=== PATIENT | male | born 1960 | race Caucasian/White ===

== ENCOUNTER 2020-04-30 17:42 | Emergency (ER) | payer MEDICARE, MEDICAID, SELFPAY ==
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
--- NOTE | 2020-04-30 18:05 | PC.NURSE ---
PT CONTINUES TO REFUSE TO ALLOW US TO TOUCH HIM OR FOR ANY TESTING BE DONE
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
[2020-04-30] MEDS: HALOPERIDOL LACTATE 5 MG/ML VIAL IM (19:12)
[2020-04-30] MEDS: diphenhydrAMINE HCl INJ 50 MG/ML VIAL IM (19:13)
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
[2020-04-30 21:13] LABS: Basophils Percent Auto 0.3 % (0.2-1.2); Eosinophils Percent Auto 0.1 % (0-4.4); Hematocrit 45.4 % (42.0-52.0); Hemoglobin 15.3 g/dL (14.0-18.0); Immature Granulocyte Absolute 0.05 K/mm3 (0.00-0.031); Immature Granulocyte Percent A 0.5 % (0-0.5); Lymphocytes Absolute Auto 1.67 K/mm3 (0.9-3.2); Lymphocytes Percent Auto 15.6 % (18.3-44.2); Mean Corpuscular HGB Conc 33.7 g/dl (32-36); Mean Corpuscular Hemoglobin 33.5 pg (26-34); Mean Corpuscular Volume 99.3 fl (80-100); Mean Platelet Volume 9.8 fl (7.4-10.4); Monocytes Absolute Auto 0.7 K/mm3 (0.1-0.6); Monocytes Percent Auto 6.8 % (2.6-8.5); Neutrophils Absolute Auto 8.2 K/mm3 (1.3-6.7); Neutrophils Percent Auto 76.7 % (45.5-73.1); Platelet Count Result 202 k/mm3 (150-375); Red Blood Count 4.57 M/mm3 (4.6-6.20); Red Cell Distribution Width 13.5 % (11.5-14.5); White Blood Count 10.7 K/mm3 (4.5-10.0)
[2020-04-30 21:20] LABS: Add Urine Microscopic? YES; Appearance Urine Clear (Clear); Bacteria Urine Trace /hpf; Bilirubin Urine Negative (Negative); Blood Urine Negative (Negative); Color Urine Yellow (Yellow); Glucose Urine UA Negative (Negative); Ketones Urine Negative (Negative); Leukocyte Esterase Ur Negative LEU/UL (Negative); Mucus Urine Rare /lpf; Nitrate Urine Negative (Negative); Protein Urine Negative (Negative); RBC Urine 0-2 /hpf (0-2); Specific Grav Ur 1.018 (1.001-1.035); Urobilinogen Urine Negative mg/dL (<2.0); WBC Urine 0-3 /hpf
--- NOTE | 2020-04-30 21:20 | PC.NURSE ---
Blood drawn and straight cath per MD request. Pt was held by 3 nurses and MD Sharif in order to safely perform the task.
[2020-04-30 21:26] LABS: Acetaminophen < 10 ug/mL (10-30); Ethanol < 10 mg/dL (<10); Salicylate < 1.0 mg/dL (2-20)
[2020-04-30 21:27] LABS: Alanine Aminotransferase 16 U/L (4-50); Albumin Level 4.2 g/dL (3.5-5.1); Alkaline Phosphatase 74 U/L (38-126); Aspartate Amino Transferase 22 U/L (17-59); Bilirubin,Total 0.5 mg/dL (0.2-1.3); Blood Urea Nitrogen 23 mg/dL (9-20); Calcium 9.7 mg/dL (8.4-10.2); Carbon Dioxide 25 mmol/L (22-30); Chloride 109 mmol/L (98-107); Estimated Glomerular Filt Rate > 60; Glucose 111 mg/dL (75-110); Potassium 4.8 mmol/L (3.4-5.0); Sodium 141 mmol/L (137-145)
[2020-04-30 21:31] LABS: Amphetamine Screen Urine Negative (Negative); Barbiturate Screen Urine Negative (Negative); Benzodiazepines Screen Urine Negative (Negative); Cannabinoid Screen Urine Negative (Negative); Cocaine Screen Urine Negative (Negative); Methadone Screen Urine Negative (Negative); Opiate Screen Urine Negative (Negative); Phencyclidine Screen Urine Negative (Negative)
--- NOTE | 2020-04-30 22:08 | PC.NURSE ---
MD Sharif states a EKG is not needed.
[2020-05-01] VITALS (7 sets, daily range): BP systolic 118–157; BP diastolic 72–103; PULSE 92–128; RESP 17–21; O2SAT 96–100
--- NOTE | 2020-05-01 02:53 | PC.NURSE ---
[id number] this nurse received a call from [facility] stating they will not be having a bed available tonight for the Pt, and they don't know exactly when one will become available.
--- NOTE | 2020-05-01 05:14 | PC.NURSE ---
[facility] called to state DR Batres was not going to accept the patient.
--- NOTE | 2020-05-01 07:16 | PC.NURSE ---
Assumed care of pt, pt is alert on stretcher, refusing ordered EKG. Pt on gambling monitor, VSS. Pt wearing clothing. Denies SI/HI at this time. Sitter at bedside. Lights dimmed. Marcus Bryant RN pt ate breakfast tray.
[2020-05-01] MEDS: diphenhydrAMINE HCl INJ 50 MG/ML VIAL 25 MG IM (07:44)
[2020-05-01] MEDS: HALOPERIDOL LACTATE 5 MG/ML VIAL IM (07:44)
--- NOTE | 2020-05-01 07:44 | PC.NURSE ---
Pt calm and cooperative with IM medications ordered. Pt angry, states You guys are druggies, pushing meds on people that do not need it. You are not authorized to give me injections. Pt rolled sleeves up bilat arms and compliant. Sitter remains at bedside.
--- NOTE | 2020-05-01 07:46 | PC.NURSE ---
Pt offered a shower at this time, declined, states I will let you know when I want to.
--- NOTE | 2020-05-01 08:46 | PC.NURSE ---
Pt is resting on stretcher, lights dimmed, sitter at bedside. Courtney from [facility] called for update. States she will continue to find placement, that she is unaware of any discharges for hospitals at this time, states It is a little early for discharges yet, but I will continue to look. Courtney aware pt is refusing/declining the EDP ordered EKG.
--- NOTE | 2020-05-01 10:39 | PC.NURSE ---
Per Courtney from Crisis request, FACE SHEET on pt faced to [facility] [phone] at this time by this RN.
--- NOTE | 2020-05-01 11:50 | PC.NURSE ---
Report given to Nicole ESTRADA at this time.Pt resting on stretcher, lights dimmed, sitter at bedside. Equal chest rise and fall, pt alert to verbal stimuli.
--- NOTE | 2020-05-01 12:30 | PC.NURSE ---
pt resting on stretcher, sitter at bedside. No current needs.
--- NOTE | 2020-05-01 13:10 | PC.NURSE ---
pt provided lunch tray at this time. Chicken strips, fries, drink.
--- NOTE | 2020-05-01 13:15 | PC.NURSE ---
Helen from [facility] - Please contact [facility] for possible intake questions. [phone].
--- NOTE | 2020-05-01 13:25 | PC.NURSE ---
RN spoke with Celina at [facility]. [facility] will fax us a face sheet with a list of required documents to fax back to them. RN awaiting fax.
--- NOTE | 2020-05-01 13:58 | PC.NURSE ---
RN faxed to [facility] required paper work at this time. RN also made a copy and placed in chart.
--- NOTE | 2020-05-01 14:10 | PC.NURSE ---
pt resting on stretcher. no current needs.
--- NOTE | 2020-05-01 15:28 | PC.NURSE ---
Amberly at [facility] requested re-faxing of chart, face sheet, petition/cert, labs and returning of the 2 questionaires they faxed to us. Paperwork faxed to [facility] at attn amberly.
--- NOTE | 2020-05-01 15:41 | PC.NURSE ---
Celina from [facility] returned call to notify this rn that they received the facesheet and questionaires. Celina informed that pt chart was sent as a 2nd faxe-seperate and will return our call to let us know if she needs us to fax again.
--- NOTE | 2020-05-01 16:04 | PC.NURSE ---
Per Celina at [facility], will speak to printing and stamping supervisor re: COVID testing for pt due to a positive case at [facility] where pt resides. Will call back to let us know if pt needs tested for COVID prior to acceptance.
--- NOTE | 2020-05-01 16:55 | PC.NURSE ---
Pt cooperative for COVID swab, states If you hurt me, I will come at you, just be aware. You people are not my suck ass kids. You people are trying to hold me here when you have no rights. I am [place], and you are niggers. You cannot hold me here against my will. You do whatever the hell you want to me. Im tired of it. Just leave me alone. Pt cooperative for EKG. Pt calm and laying on stretcher. VSS. Pt has poor hygiene, foul smell, clothing moist. Pt refuses hospital gown, pt agreeable to shower. Security will assist to floor for shower.
--- NOTE | 2020-05-01 17:44 | PC.NURSE ---
Pt ambulated to [facility] for shower, security and tech in assist, pt is calm and cooperative.
--- NOTE | 2020-05-01 18:58 | PC.NURSE ---
Per Shannan at [facility], will potentially accept pt pending results of COVID. Pt was swabbed on this afternoon and results pending. Per Shannan call if negative at [phone].
--- NOTE | 2020-05-01 19:30 | PC.NURSE ---
pt resting on stretcher. no current needs. sitter at bedside.
--- NOTE | 2020-05-01 20:15 | PC.NURSE ---
pt refused vs, urination, and food/drink at this time.
--- NOTE | 2020-05-01 21:30 | PC.NURSE ---
pt ambulatory with steady gait to restroom. sitter with pt during ambulation.
--- NOTE | 2020-05-01 22:14 | PC.NURSE ---
pt is currently refusing vital signs, nutrition at this time.
--- NOTE | 2020-05-01 22:45 | PC.NURSE ---
Mercedez Ortiz updated on status. Awaiting covid 19 results.
[2020-05-02 11:39] VITALS: BP 140/68; PULSE 62; RESP 18; O2SAT 99
--- NOTE | 2020-05-02 11:41 | PC.NURSE ---
patient calm and cooperative in room. verbalizing no thoughts of self harm
--- NOTE | 2020-05-02 12:58 | PC.NURSE ---
spoke with [facility] worker about patient. she reports she is still seeking placement for this patient
--- NOTE | 2020-05-02 13:03 | PC.NURSE ---
patient states he was refusing medications at the correction because they dont agree with me patient states the medications prevent him from sweating. patient states that he has been in a psych facility and was frightened by the other patients and that is why he is unwilling to go .when told that he will be sent to a psych facility with or without his consent, patient refused to speak with this nurse any further
[2020-05-02 13:39] LABS: SARS-CoV-2 RNA PCR Negative
[2020-05-02] MEDS: diphenhydrAMINE HCl INJ 50 MG/ML VIAL IV PUSH (18:27)
[2020-05-02] MEDS: HALOPERIDOL LACTATE 5 MG/ML VIAL IM (18:27)
--- NOTE | 2020-05-02 19:21 | PC.NURSE ---
Addendum entered by Brittney Alejandre 05/02/20 21:40: called for eta....approximately 22:30 Addendum entered by Brittney Alejandre 05/02/20 21:03: CALLED [facility] FOR ETA STATUS @ 20:27....ETA APPROXIMATELY 21:15-21:30 Original Note: +Called [facility] to obtain status on ETA of ALS....approximately 45-60 minutes.
[2020-05-02] MEDS: HALOPERIDOL LACTATE 5 MG/ML VIAL (22:24)
== END 2020-05-02 22:28 ==
PROVIDERS: Emergency Medicine; Emergency Provider Emergency Medicine
DX: R45.1 Restlessness and agitation (principal); F29 Unspecified psychosis not due to a substance or known physiological condition; J44.9 Chronic obstructive pulmonary disease, unspecified; Z20.828 Contact with and (suspected) exposure to other viral communicable diseases; I38 Endocarditis, valve unspecified; P91.60 Hypoxic ischemic encephalopathy [HIE], unspecified; F20.9 Schizophrenia, unspecified; I50.9 Heart failure, unspecified
CPT/HCPCS: 36415; 80053; 80307; 81001; 84443; 85025; 87635; 96372; 96374; 96375; 99285; C9803; J1200; J1630; J2060; U0003

== ENCOUNTER 2022-05-07 20:45 | Emergency (ER) | payer OTHER, SELFPAY ==
[2022-05-07] VITALS (8 sets, daily range): BP systolic 96–114; BP diastolic 84–92; PULSE 107–123; RESP 15–27; TEMP 36.4; O2SAT 94–97
--- NOTE | ~2022-05-07 | XR_ITS ---
EXAMINATION: XR chest 1V portable Exam Date/Time: 05/07/2022 21:22 CDT HISTORY: dyspnea HX PNEUMONIA RECENTLY,COPD,HEART FAILURE,SMOKER Comparison: None available. RESULT: Lines, tubes, and devices: None. Lungs and pleura: Ill-defined patchy bilateral groundglass opacities. Indistinct vessel margins. Rig ht costophrenic angle blunting. Cardiomediastinal silhouette: Stable cardiomediastinal silhouette. Other: No acute osseous or upper abdominal finding. IMPRESSION: Pulmonary findings likely represent pulmonary edema, with small right pleural effusion. Infection, in cluding atypical/viral infection not excluded.. Reviewed, dictated and finalized at location K. IMPRESSION: Pulmonary findings likely represent pulmonary edema, with small right pleural e ffusion. Infection, including atypical/viral infection not excluded..
--- NOTE | 2022-05-07 21:00 | PC.NURSE ---
PT had soiled himself. RN attempted to clean pt up but pt refused.
--- NOTE | 2022-05-07 21:16 | PC.NURSE ---
This RN called [facility] and spoke with staff who report that pt is noncompliant at baseline and refused to take psych meds x 1 year. At baseline, pt is verbally aggressive and ambulates without assist. Today, pt was acting differently and sat in wc 'all day', and did not interact with anyone. However, EMS reports that on their arrival, pt was yelling and being combative with staff present. Since arrival in ED and en route per EMS crew, pt has been cooperative and conversive.
[2022-05-07] MEDS: IPRATROPIUM BR 0.02% INH SOLN 0.5 MG/2.5 ML VIAL INHALATION (21:17)
[2022-05-07] MEDS: ALBUTEROL SULFATE NEB 2.5 MG/3 ML INH 5 MG INHALATION (21:17)
[2022-05-07 21:25] LABS: Basophils Percent Auto 0.2 % (0.2-1.2); Eosinophils Absolute Auto 0.1 K/mm3 (0-0.3); Eosinophils Percent Auto 0.6 % (0-4.4); Hematocrit 52.1 % (42.0-52.0); Hemoglobin 17.5 g/dL (14.0-18.0); Immature Granulocyte Absolute 0.08 K/mm3 (0.00-0.031); Immature Granulocyte Percent A 0.6 % (0-0.5); Lymphocytes Absolute Auto 1.38 K/mm3 (0.9-3.2); Lymphocytes Percent Auto 10.9 % (18.3-44.2); Mean Corpuscular HGB Conc 33.6 g/dl (32-36); Mean Corpuscular Hemoglobin 33.4 pg (26-34); Mean Corpuscular Volume 99.4 fl (80-100); Mean Platelet Volume 10.4 fl (7.4-10.4); Monocytes Absolute Auto 1.3 K/mm3 (0.1-0.6); Monocytes Percent Auto 10.5 % (2.6-8.5); Neutrophils Absolute Auto 9.7 K/mm3 (1.3-6.7); Neutrophils Percent Auto 77.2 % (45.5-73.1); Platelet Count Result 213 k/mm3 (150-375); Red Blood Count 5.24 M/mm3 (4.6-6.20); Red Cell Distribution Width 17.8 % (11.5-14.5); White Blood Count 12.6 K/mm3 (4.5-10.0)
[2022-05-07 21:35] LABS: Lactic Acid Reflex 2.4 mmol/L (0.7-2.0)
[2022-05-07 21:36] LABS: INR 1.4; Prothrombin Time 16.8 Seconds (11.1-14.7)
[2022-05-07 21:37] LABS: Partial Thromboplastin Time 34.4 SECONDS (22.3-36.8)
[2022-05-07 21:38] LABS: Alanine Aminotransferase 39 U/L (6-50); Albumin Level 2.9 g/dL (3.5-5.1); Alkaline Phosphatase 91 U/L (38-126); Anion Gap 6 mmol/L (8-16); Aspartate Amino Transferase 27 U/L (17-59); Bilirubin,Total 1.9 mg/dL (0.2-1.3); Blood Urea Nitrogen 35 mg/dL (9-20); Calcium 8.2 mg/dL (8.4-10.2); Carbon Dioxide 20 mmol/L (22-30); Chloride 109 mmol/L (98-107); Estimated CRCL calculation 47 ml/min; Estimated Glomerular Filt Rate 51; Glucose 150 mg/dL (65-110); Potassium 4.1 mmol/L (3.4-5.0); Sodium 135 mmol/L (137-145)
[2022-05-07 21:51] LABS: NT Pro B Type Natriuretic Pept 25600 pg/mL (5-100); Troponin I 0.073 ng/mL (0.000-0.034)
--- NOTE | 2022-05-07 21:52 | ECG_ITS ---
Measurements Intervals [place]edy Rate: 111 P: 71 VT: 171 QRS: -31 QRSD: 136 T: 114 QT: 366 QTc: 499 Interpretive Statements SINUS TACHYCARDIA FREQUENT ATRIAL AND VENTRICULAR PREMATURE COMPLEXES INTRAVENTRICULAR CONDUCTION DELAY BORDERLINE R WAVE PROGRESSION, ANTERIOR LEADS BORDERLINE ST-T WAVE ABNORMALITY- LAT/HIGH LAT LEADS ABNORMAL ECG Electronically Signed On 05-08-2022 9:36:12 CDT by Jorge Olson D.O.
--- NOTE | 2022-05-07 21:57 | ED.GENADULT ---
HPI - General Adult General Chief complaint: Shortness of Breath/Dyspnea Stated complaint: increased confusion over 1 week Time Seen by Provider: 05/07/22 20:51 History of Present Illness HPI narrative: Patient 61-year-old gentleman who presents the emergency department with chief complaint of shortness of breath. Patient is a resident of a local nursing facility and is not really compliant with any form of treatment the patient has history of schizophrenia and per the staff has been less active than normal they also report that he is recently been treated for pneumonia. The patient states that he has noticed that he is more short of breath than normal states that he does feels as though he is not getting a good deep breath. Patient denies fever denies cough denies peripheral edema. Related Data Home Medications Medication Instructions Recorded Confirmed paliperidone palmitate 156 mg/mL 156 mg IM Q30D 04/30/20 05/07/22 intramuscular syringe (Invega Sustenna) Allergies Allergy/AdvReac Type Severity Reaction Status Date / Time No Known Allergies Allergy Verified 05/07/22 20:53 Review of Systems Review of Systems: A 10 system review of systems was completed on the patient and is negative except for what is stated in the HPI. Nursing and ancillary documentation was reviewed. [facility] Past Medical History Medical History COPD (chronic obstructive pulmonary disease) Endocarditis Esophagitis Heart failure HIE (hypoxic-ischemic encephalopathy) Schizophrenia Social History Social History Smoking status: Smoker, status unknown Alcohol intake: unknown Substance use: unknown Gender identity (if verbalized by the patient): Male Exam Narrative: GENERAL: Well-appearing, well-nourished, and in no acute distress. HEAD: Normocephalic, atraumatic. EYES: PERRLA and EOMI. ENT: Nares clear, no rhinorrhea or epistaxis. Mucous membranes moist. NECK: Supple. CHEST: Clear to auscultation. No respiratory distress. HEART: Regular rate and rhythm. No murmur heard. Normal peripheral pulses. ABDOMEN: Soft, nontender, nondistended, normal active bowel sounds. EXTREMITIES: Normal range of motion. No edema. SKIN: Warm, dry, no rash. NEURO: No focal deficits. Alert and oriented x3. PSYCH: Normal mood and affect. Course Course Emergency Course: EKG has sinus tachycardia with rate of 111 with frequent PVCs Patient's chest x-ray shows pulmonary vascular congestion patient has a slightly elevated troponin and a BNP of greater than 25,000. It was discussed with the patient that most likely he has new onset congestive heart failure and we would like to work this up further. The patient states that he does not want to stay in the hospital and understands that he could get sicker cause permanent heart damage could have developed or severe disability. Per the longterm records the patient makes his own decisions the patient does express understanding the consequences of refusing care Vital Signs Vital signs: Vital Signs Pulse Oximetry 95 05/07/22 20:51 Temperature 36.4 C 05/07/22 20:53 Pulse Rate 108 H 05/07/22 21:30 Respiratory Rate 26 H 05/07/22 21:30 Blood Pressure 114/92 H 05/07/22 21:17 Pulse Oximetry 96 05/07/22 21:30 Oxygen Delivery Room Air 05/07/22 21:01 Medical Decision Making Vital Signs Vital Signs: Vital Signs Pulse Oximetry 95 05/07/22 20:51 Temperature 36.4 C 05/07/22 20:53 Pulse Rate 108 H 05/07/22 21:30 Respiratory Rate 26 H 05/07/22 21:30 Blood Pressure 114/92 H 05/07/22 21:17 Pulse Oximetry 96 05/07/22 21:30 Oxygen Delivery Room Air 05/07/22 21:01 Lab Data Result diagrams: 05/07/22 21:18 05/07/22 21:19 Labs: Lab Results 05/07/22 05/07/22 05/07/22 Range/Units 21:17 21
[2022-05-07 22:08] LABS: Procalcitonin 0.1 ng/mL
--- NOTE | 2022-05-07 22:46 | PC.NURSE ---
RN SPOKE WITH [facility] N[facility] WHO STATES HE DOES NOT THINK PT HAS A GUARDIAN PTS MOTHER IS LISTED POA OF MEDICAL. ERP MADE AWARE.
--- NOTE | 2022-05-07 23:00 | PC.NURSE ---
PT refusing to let RN clean pt up or give pt supplies to clean himself up. PT states Ill clean myself up when I get home and I am comfortable
--- NOTE | 2022-05-07 23:20 | PC.NURSE ---
called [facility] to request transport. ETA - now
[2022-05-08 00:23] LABS: Reflex Lactic Acid Yes or No Add Lactic
[2022-05-08 00:51] LABS: Influenza A QL RT-PCR Negative (Negative); Influenza B QL RT-PCR Negative (Negative); SARS-CoV-2 RNA PCR Negative
== END 2022-05-07 23:36 | disposition left against medical advice (07) ==
PROVIDERS: Emergency Provider Emergency Medicine
DX: I50.9 Heart failure, unspecified (principal); Z20.822 Contact with and (suspected) exposure to COVID-19; J44.9 Chronic obstructive pulmonary disease, unspecified; F20.9 Schizophrenia, unspecified
CPT/HCPCS: 36415; 71045; 80053; 83605; 83735; 83880; 84145; 84484; 85025; 85610; 85730; 87502; 93005; 94640; 99284; C9803; U0003; U0005